=== PATIENT | male | born 1990 | race Two or more races ===

== ENCOUNTER 2024-12-06 15:41 | Emergency (ER) | payer MEDICAID ==
[~2024-12-06] VITALS: Ht 185.4 cm; Wt 98.0 kg
[2024-12-06 16:43] LABS: PLATELET COUNT (AUTO) 273 K/uL (150-450); RED BLOOD CELL COUNT(AUTO) 5.16 MIL/uL (4.5-6.0); RED CELL DISTRIBUTION WIDTH 13.5 % (11.5-15.0); WHITE BLOOD COUNT (AUTO) 7.7 K/uL (4.3-11.0)
[2024-12-06 16:50] LABS: CALCIUM, SERUM 8.9 mg/dL (8.5-10.1); CREATININE 0.8 mg/dL (0.6-1.3); SODIUM SERUM 137 mmol/L (136-145); UREA NITROGEN, BLOOD 12 mg/dL (7-18)
[2024-12-06] MEDS ORDERED: AMLO10TA4 PO (18:56)
[2024-12-06 20:13] VITALS: BP 132/78; TEMP 98.3; O2SAT 99
== END 2024-12-06 20:14 | disposition home or self-care (01) ==
LOC: ER 15:54
DX: R07.89 Other chest pain (principal); R06.02 Shortness of breath; R20.2 Paresthesia of skin; I11.9 Hypertensive heart disease without heart failure; E87.6 Hypokalemia
CPT/HCPCS: 36415; 71045-TC; 80048-TC; 84484-TC; 85025-TC; 85378-TC